=== PATIENT | female | born 1970 | race Caucasian/White ===

== ENCOUNTER 2016-08-30 05:59 | Emergency (ER) | payer BC ==
--- NOTE | ~2016-08-30 | CR210 ---
[facility]. [facility] A Service of [facility] & [facility] RADIOLOGY TEXT RESULTS PATIENT: MARIUM DINH LOCATION: SED : 66 UNIT #: [id number] AGE: [address]: Kelli Lizarraga MD SEX: F ORDER DR: [id number] [address] [address] [id number] E MR#: [id number] Acc #: [id number] NAME: MARIUM DINH : 1970 SEX: F STUDY DATE/TIME: 08/30/2016 6:29 UNIT: SED ROOM: STUDY DESCRIPTION: CR Ribs Uni 2 View W PA Ch Lt Attending Physician: Kelli Lizarraga M.D. Ordering Physician: Jono Livingston M.D. Primary Care Physician: Aury Ji M.D. MEDICAL IMAGING REPORT This report is preliminary unless electronic signature is present. EXAM Left rib series with PA chest. INDICATION Chronic pain left mid ribs for two weeks. TECHNIQUE PA view of the chest and oblique views of the left ribs were obtained. FINDINGS The heart size and vascularity are normal. The lungs are clear. The bones are normal. IMPRESSION Normal PA chest and left rib series. Dictated by... Chito Gresham M.D. THIS IS AN ELECTRONICALLY VERIFIED REPORT Chito Gresham M.D. at 08/30/2016 2:19 PM FEL/gz TD: 08/30/2016 10:37 JOB #: [id number] MEDICAL IMAGING REPORT Page 1 of 1
--- NOTE | ~2016-08-30 | CT16 ---
[facility] A Service of [facility] RADIOLOGY TEXT RESULTS PATIENT: MARIUM DINH LOCATION: SED : 66 UNIT #: [id number] AGE: [address]: Kelli Lizarraga MD SEX: F ORDER DR: [id number] [address] [address] [id number] E MR#: [id number] Acc #: [id number] NAME: MARIUM DINH : 1970 SEX: F STUDY DATE/TIME: 08/30/2016 8:19 UNIT: SED ROOM: STUDY DESCRIPTION: CT Angio Chest for PE Attending Physician: Kelli Lizarraga M.D. Ordering Physician: Kelli Lizarraga M.D. Primary Care Physician: Aury Ji M.D. MEDICAL IMAGING REPORT This report is preliminary unless electronic signature is present. . EXAM Chest CT angiogram with contrast 08/30/2016 TECHNIQUE Axial contrast-enhanced chest CT angiogram with three-dimensional reformats. This CT exam was performed with one or more of the following radiation dose reduction techniques: Automatic exposure control, adjustment of mA and/or kV according to patient size, and iterative reconstruction. CLINICAL HISTORY Left-side chest pain for 2 weeks. Bronchitis. FINDINGS There are bilateral fairly symmetric upper lobe alveolar infiltrates. There is mild diffuse bronchial wall thickening. There is no other consolidation and there is no effusion. There is no mediastinal mass or adenopathy. The thoracic aorta appears normal. Bolus timing is poor for evaluation of the pulmonary arteries. No gross evidence of pulmonary embolism is seen, but assessment is limited due to bolus timing. Limited images of the upper abdomen are unremarkable. IMPRESSION 1. Bilateral upper lobe left slightly greater than right fluffy alveolar infiltrates. Mild diffuse bronchial wall thickening of uncertain significance. 2. No mediastinal mass or adenopathy. No effusion. 3. Poor bolus timing for assessment of the pulmonary arteries. No gross evidence of pulmonary embolism but again limited assessment. [facility] A Service of [facility] RADIOLOGY TEXT RESULTS PATIENT: MARIUM DINH LOCATION: SED : 66 UNIT #: [id number] AGE: [address]: Kelli Lizarraga MD SEX: F ORDER DR: Dictated by... Yoandy Mcdonald M.D. THIS IS AN ELECTRONICALLY VERIFIED REPORT Yoandy Mcdonald M.D. at 09/01/2016 1:22 PM TEV/bd TD: 08/30/2016 12:05 JOB #: [id number] MEDICAL IMAGING REPORT Page 1 of 1
--- NOTE | ~2016-08-30 | EKG ---
PATIENT: MARIUM DINH UNIT #: [id number] Ventricular Rate: 67 BPM Atrial Rate: 67 BPM P-R Interval: 164 ms QRS Duration: 86 ms Q-T Interval: 392 ms QTC Calculation(Bezet): 414 ms P [place]: 34 degrees Calculated R [place]: 38 degrees Calculated T [place]: 54 degrees Diagnosis Line: Normal sinus rhythm Diagnosis Line: Normal ECG Diagnosis Line: No previous ECGs available Diagnosis Line: Confirmed by WALKER JUAREZ MD ([id number]) on Diagnosis Line: 08/31/2016 1:27:21 PM INTERPRETING MD: ANN CASTILLO
[~2016-08-30 05:59] MED LIST: ALBUTEROL17 GM; ALDACTONE100 MG; AMOXICILLIN; CARDIZEM60 MG DOB; CEFDINIR300 MG PO; CLARITIN10 M3; CRANBERRY+ SOFT1 CAP PO; FLONASE 0.05% N16 GM; HUMIRA20 MG/0.4; PREDNISONE; PROBIOTIC1 EAC1 PO; SERTRALINE HCL100 MG PO; TESSALON PERLE100 M1 DOB; ZYRTEC10 M2 PO
[2016-08-30] MEDS ORDERED: ZOLOFT PO (06:12)
[2016-08-30 07:46] LABS: BASOPHIL# 0.1 X10e3 (0-0.3); BASOPHIL% 1.1 % (0-2.5); EOSINOPHIL# 0.3 X10e3 (0-0.7); EOSINOPHIL% 2.2 % (0.0-7.0); HEMATOCRIT 48.5 % (35.0-45.0); HEMOGLOBIN 16.3 gm/dL (12.0-16.0); LYMPHOCYTE# 2.7 X10e3 (1.0-3.5); LYMPHOCYTE% 22.1 % (17.0-45.0); MEAN CELL VOLUME 92.6 FL (83-96); MEAN CORPUSCULAR HGB CONC 33.5 g/dL (30-36); MEAN PLATELET VOLUME 7.1 FL (6.5-11.5); MONOCYTE# 0.7 X10e3 (0-1.0); MONOCYTE% 5.4 % (3.0-12.0); NEUTROPHIL# 8.3 X10e3 (1.5-7.1); NEUTROPHIL% 69.2 % (40-75); PLATELET COUNT 266 X10e3 (140-420); RED BLOOD COUNT 5.24 X10e (3.90-5.30); RED CELL DISTRIBUTION WIDTH 13.7 % (11.0-15.5)
[2016-08-30 07:54] LABS: POC - CKMB 2.1 ng/mL (0.0-7.9); POC - TROPONIN <0.05 ng/mL (<=0.05)
[2016-08-30 08:04] LABS: ALBUMIN SERUM 3.9 g/dL (3.5-5.0); BILIRUBIN,TOTAL 0.5 mg/dL (0.2-2.0); BUN/CREATININE RATIO 22.5; CALCIUM SERUM 9.1 mg/dL (8.4-10.2); CREATININE SERUM 0.8 mg/dL (0.6-1.4); GLOM FILT RATE Estimated 87.9 mL/min (>60); POTASSIUM 4.4 mmol/L (3.5-5.1)
[2016-08-30 08:06] LABS: DIFF IND NO
== END 2016-08-30 11:55 | disposition home or self-care (01) ==
LOC: SED 05:59
PROVIDERS: Emergency Medicine
DX: J18.9 Pneumonia, unspecified organism (principal); Z88.5 Allergy status to narcotic agent; Z91.040 Latex allergy status; Z91.041 Radiographic dye allergy status
CPT/HCPCS: 36415; 71100; 71275; 80053; 82553; 84484; 85025; 85379; 93005; 96372; 96374; 96375; 99284; J0456; J0696; J1170; J1885; J2060; Q9967

== ENCOUNTER → 2016-09-08 | Outpatient (CLI) | payer BC ==
[~2016-09-08] MED LIST changes: +ZOLOFT PO
--- NOTE | ~2016-09-08 | CR63 ---
[facility] A Service of [facility] & [facility] RADIOLOGY TEXT RESULTS PATIENT: MARIUM DINH LOCATION: [facility] : 66 UNIT #: [id number] AGE: [address]: Aury Ji MD SEX: F ORDER DR: [id number] [address] [address] [id number] O MR#: [id number] Acc #: [id number] NAME: MARIUM DINH : 1970 SEX: F STUDY DATE/TIME: 09/08/2016 17:56 UNIT: [facility] ROOM: STUDY DESCRIPTION: CR Chest 2 View Attending Physician: Aury Ji M.D. Referring Physician: Aury Ji M.D. Ordering Physician: Aury Ji M.D. Primary Care Physician: Aury Ji M.D. MEDICAL IMAGING REPORT This report is preliminary unless electronic signature is present. EXAM Chest PA and lateral 09/08/2016 HISTORY Shortness of breath for 9 days. Follow up bilateral pneumonia. FINDINGS The heart is normal in size. There has been a decrease in the infiltrate in the right upper lobe compared with CT scan of the chest dated 08/30/2016. Left lung is now clear. There are no pleural effusions. No pneumothorax. IMPRESSION Resolution of left upper lobe pneumonia compared with 08/30/2016. Interval decrease in the infiltrate in the right upper lobe. Dictated by... Yann Pitt M.D. THIS IS AN ELECTRONICALLY VERIFIED REPORT Yann Pitt M.D. at 09/10/2016 4:31 PM KOLE/lisa TD: 09/09/2016 08:41 JOB #: [id number] MEDICAL IMAGING REPORT Page 1 of 1
== END | disposition home or self-care (01) ==
LOC: SRAD 17:49
DX: J18.9 Pneumonia, unspecified organism (principal)
CPT/HCPCS: 71020